=== PATIENT | female | born 1990 | race Caucasian/White ===

== ENCOUNTER 2016-11-29 17:09 | Emergency (ER) | payer SELFPAY ==
[2016-11-29 17:20] VITALS: BP 112/81
[2016-11-29] MEDS ORDERED: HYDROCODONE/ACETAMINOPHEN 5-325 MG TABLET PO ONE (17:32)
--- NOTE | 2016-11-29 17:42 | ER Document Report ---
ED Hand/Wrist Injury - General Chief Complaint: Wrist Injury Stated Complaint: RIGHT WRIST INJURY Time Seen by Provider: 11/29/16 17:27 Mode of Arrival: Ambulatory Information source: Patient TRAVEL OUTSIDE OF THE [place] IN LAST 30 DAYS: No - HPI Injury to: Wrist - right Onset: Just prior to arrival Where: Outdoors Timing: Constant Quality of pain: Dull Severity: Moderate Pain Level: 3 Notes: Patient arrives with complaints of right wrist injury just before arrival. She was lifting a heavy toed out of the back of a truck. When the toe came off of the tailgate was too heavy for her to handle and her right wrist hit a truck. This caused an abrasion and injury. She denies any other injuries. She states that her tetanus has been within the last 5 years, she denies any numbness tingling or weakness. No other injuries or complaints at this time. - Related Data Allergies/Adverse Reactions: No Known Allergies Allergy (Verified 11/29/16 17:16) Past Medical History - Social History Patient has suicidal ideation: No Patient has homicidal ideation: No Renal/ Medical History: Denies: Hx Peritoneal Dialysis Review of Systems - Review of Systems -: Yes All other systems reviewed and negative Physical Exam - Vital signs Vitals: Temp Pulse Resp BP Pulse Ox 98.0 F 94 16 112/81 99 11/29/16 17:16 11/29/16 17:16 11/29/16 17:16 11/29/16 17:16 11/29/16 17:16 Course - Vital Signs Vital signs: Temp Pulse Resp BP Pulse Ox 98.0 F 94 16 112/81 99 11/29/16 17:16 11/29/16 17:16 11/29/16 17:16 11/29/16 17:16 11/29/16 17:16
--- NOTE | 2016-11-29 21:12 | RADIOLOGY REPORT (SQ) ---
EXAM DESCRIPTION: WRIST RIGHT 3 VIEWS COMPLETED DATE/TIME: 11/29/2016 8:54 pm REASON FOR STUDY: injury, pain COMPARISON: None. NUMBER OF VIEWS: Three views. TECHNIQUE: AP, lateral, and oblique radiographic images acquired of the right wrist. LIMITATIONS: None. FINDINGS: MINERALIZATION: Normal. BONES: No acute fracture or dislocation. No worrisome bone lesions. Normal alignment. SOFT TISSUES: No soft tissue swelling. No foreign body. OTHER: No other significant finding. IMPRESSION: NO RADIOGRAPHIC EVIDENCE OF ACUTE INJURY. TECHNICAL DOCUMENTATION: JOB ID: [id number] [employer] All Rights Reserved
== END 2016-11-29 19:15 | disposition home or self-care (01) ==
LOC: ER 17:09
DX: S63.501A Unspecified sprain of right wrist, initial encounter (principal); X50.0XXA Overexertion from strenuous movement or load, initial encounter
CPT/HCPCS: 99283; 73110; L3908